=== PATIENT | female | born 1980 | race Hispanic/Latino ===

== ENCOUNTER 2021-01-02 05:30 | Observation (INO) | payer OTHER ==
[2021-01-01 12:20] LABS: BASOPHILS % (AUTO) 1.4 % (0.0-5.0); EOSINOPHILS % (AUTO) 0.9 % (0.0-8.0); HEMATOCRIT 39.5 % (36-48); MEAN CORPUSCULAR HEMOGLOBIN 28.1 pg (27.0-33.0); MEAN CORPUSCULAR HGB CONC 32.4 g/dL (32.0-36.0); MEAN CORPUSCULAR VOLUME 86.8 fL (79-99); MONOCYTES % (AUTO) 7.8 % (3.0-13.0); NEUTROPHILS % (AUTO) 50.5 % (40.0-77.0); PLATELET COUNT (AUTO) 375 K/uL (130-400); RED BLOOD CELL COUNT(AUTO) 4.55 MIL/uL (4.00-5.50); RED CELL DISTRIBUTION WIDTH 12.2 % (11.0-15.5); WHITE BLOOD COUNT (AUTO) 6.9 K/uL (4.8-10.8)
[2021-01-01 13:43] VITALS: BP 119/75
[2021-01-02] VITALS (22 sets, daily range): BP systolic 105–139; BP diastolic 46–86
[~2021-01-02] VITALS: Ht 154.9 cm; Wt 74.4 kg
[2021-01-02] MEDS ORDERED: LACTATED RINGERS 1000ML 1,000 ML IV ONE (06:53)
[2021-01-02] MEDS: CEFAZOLIN SODIUM 1 GM VIAL ONE ×2 (07:05→09:10)
[2021-01-02] MEDS ORDERED: ROCURONIUM 10MG/1ML SYR 10 MG/ML ML ONE (08:11)
[2021-01-02] MEDS ORDERED: MIDAZOLAM HCL 1 MG/ML 2ML VIAL ONE (08:11)
[2021-01-02] MEDS ORDERED: NEOSTIGMINE 5MG/5ML SYR IV ONE (08:11)
[2021-01-02] MEDS ORDERED: PROPOFOL 10 MG/ML 20ML VIAL IV ONE (08:11)
[2021-01-02] MEDS ORDERED: LIDOCAINE PF 100MG/5ML (2%) SYRINGE 5ML ONE (08:11)
[2021-01-02] MEDS ORDERED: DEXAMETHASONE SOD PHOSPHATE 10MG/ML 1ML VIAL ONE (08:11)
[2021-01-02] MEDS ORDERED: ONDANSETRON 4MG INJ ONE (08:11)
[2021-01-02] MEDS ORDERED: SUCCINYLCHOLINE 200MG/10ML SYR ONE (08:11)
[2021-01-02] MEDS ORDERED: GLYCOPYRROLATE 1 MG/5 ML SYRINGE ONE (08:11)
[2021-01-02] MEDS ORDERED: FENTANYL CITRATE PF 50 MCG/1 ML 2ML VIAL ONE ×2 (08:12→10:52)
[2021-01-02] MEDS ORDERED: MEPERIDINE-PF 25 MG/ML SYG ONE ×3 (08:13→12:10)
[2021-01-02] MEDS ORDERED: PROMETHAZINE HCL 25 MG/ML 1ML AMPULE IM PRN (13:30)
[2021-01-02] MEDS ORDERED: ACETAMINOPHEN WITH CODEINE 1 TAB TAB PO PRN (13:30)
[2021-01-02] MEDS ORDERED: BISACODYL 10 MG SUPP.RECT RC PRN (13:30)
[2021-01-02] MEDS ORDERED: IBUPROFEN 600 MG TABLET PO PRN (13:30)
[2021-01-02] MEDS: PROMETHAZINE HCL 25 MG/ML 1ML AMPULE IM PRN ×2 (14:19→18:03)
[2021-01-02] MEDS: MEPERIDINE-PF 75 MG/ML SYG IM PRN ×2 (14:21→18:04)
[2021-01-02] MEDS: DEXTROSE 5 %-0.45 % NACL 1,000 ML IV SCH (17:16)
[2021-01-02] MEDS ORDERED: ONDANSETRON 4MG INJ IVP PRN (18:00)
[2021-01-02] MEDS: SIMETHICONE 80 MG TAB.CHEW PO PRN (21:36)
[2021-01-02] MEDS: DOCUSATE SODIUM 100 MG CAP PO PRN (21:36)
[2021-01-03] VITALS (7 sets, daily range): BP systolic 98–125; BP diastolic 54–76
[2021-01-03] MEDS: DEXTROSE 5 %-0.45 % NACL 1,000 ML IV SCH ×2 (00:31→08:23)
[2021-01-03] MEDS ORDERED: ACETAMINOPHEN WITH CODEINE 1 TAB TAB PO PRN (02:30)
[2021-01-03] MEDS: HYDROCODONE/ACETAMINOPHEN 5/325 MG TAB PO PRN ×4 (04:01→23:52)
[2021-01-03 05:43] LABS: HEMATOCRIT 35.2 % (36-48); MEAN CORPUSCULAR HEMOGLOBIN 28.2 pg (27.0-33.0); MEAN CORPUSCULAR HGB CONC 32.7 g/dL (32.0-36.0); MEAN CORPUSCULAR VOLUME 86.3 fL (79-99); RED BLOOD CELL COUNT(AUTO) 4.08 MIL/uL (4.00-5.50); RED CELL DISTRIBUTION WIDTH 12.2 % (11.0-15.5); WHITE BLOOD COUNT (AUTO) 14.6 K/uL (4.8-10.8)
[2021-01-03] MEDS: DOCUSATE SODIUM 100 MG CAP PO PRN ×2 (08:20→20:13)
[2021-01-03] MEDS: SIMETHICONE 80 MG TAB.CHEW PO PRN ×2 (08:20→22:28)
[2021-01-03] MEDS: IBUPROFEN 800 MG TAB PO PRN ×2 (12:04→20:15)
[2021-01-04 03:15] VITALS: BP 98/53
[2021-01-04 07:41] VITALS: BP 96/57
[2021-01-04] MEDS: DOCUSATE SODIUM 100 MG CAP PO PRN (08:47)
[2021-01-04] MEDS: SIMETHICONE 80 MG TAB.CHEW PO PRN (08:47)
[2021-01-04] MEDS: IBUPROFEN 800 MG TAB PO PRN (08:48)
[2021-01-04 11:19] VITALS: BP 115/62
== END 2021-01-04 13:30 | disposition home or self-care (01) ==
LOC: DAH 05:30 → INTOOBSV 05:31 → WSH 05:31
PROVIDERS: ADMIT Obstetrics & Gynecology; ATTEND Obstetrics & Gynecology
DX: N81.4 Uterovaginal prolapse, unspecified (principal); Z20.822 Contact with and (suspected) exposure to COVID-19; N39.3 Stress incontinence (female) (male); D25.9 Leiomyoma of uterus, unspecified; N84.1 Polyp of cervix uteri; K46.9 Unspecified abdominal hernia without obstruction or gangrene; Z90.710 Acquired absence of both cervix and uterus; Z79.899 Other long term (current) drug therapy
CPT/HCPCS: 36415 ×2; 51040; 57288; 58263; 84703; 85025; 85027; 86850; 86900; 86901; 87635; 88302; 88305; 88307; 96361 ×2; 96372; 96374; A4213; A4215; A4216; A4221; A4222; A4223 ×2; A4344; A4351; A4510; A4600; A4606; A4663; C1771; C9803; G0378 ×27; J0330; J0690; J1100; J2001; J2175 ×5; J2250; J2405 ×2; J2550 ×2; J2704; J2710; J3010 ×2; J3490; J7120 ×2